=== PATIENT | male | born 1995 | race Hispanic/Latino ===

== ENCOUNTER 2018-05-02 18:25 | Emergency (ER) | payer SELFPAY ==
--- NOTE | 2018-05-02 20:09 | EDPHYS ---
Physician Documentation [facility] Name: Justus Crook Jr Age: 22 yrs Sex: Male : 1995 Arrival Date: 05/02/2018 Time: 18:26 Bed 9 Private MD: None, None ED Physician Luis Phillips HPI: 05/02 19:48 This 22 yrs old Male presents to ER via Ambulatory with complaints of Sore kb Throat. 19:48 The patient presents with sore throat. The patient describes throat pain as constant. kb Onset: The symptoms/episode began/occurred 5 day(s) ago. Severity of symptoms: At their worst the symptoms were moderate, in the emergency department the symptoms are unchanged. Modifying factors: The symptoms are alleviated by nothing, the symptoms are aggravated by swallowing, Patient's oral intake status: good. Associated signs and symptoms: Pertinent positives: cough, Sore throat Pertinent negatives chest pain, chills, diarrhea, dysphagia, earache, fever, flu-like symptoms, headache, nausea, rhinorrhea, shortness of breath, vomiting. The patient has not experienced similar symptoms in the past. The patient has not recently seen a physician. Historical: - Allergies: 18:41 No Known Allergies; aa5 - PMHx: 18:41 None; aa5 - PSHx: 18:41 None; aa5 - Immunization history:: Adult Immunizations up to date. - Social history:: Smoking status: Patient/guardian denies using tobacco. - Ebola Screening: : No symptoms or risks identified at this time. ROS: 19:47 Constitutional: Negative for fever, chills, and weight loss, Neck: Negative for injury, kb pain, and swelling, Cardiovascular: Negative for chest pain, palpitations, and edema, Abdomen/GI: Negative for abdominal pain, nausea, vomiting, diarrhea, and constipation, Back: Negative for injury and pain, MS/Extremity: Negative for injury and deformity, Skin: Negative for injury, rash, and discoloration, Neuro: Negative for headache, weakness, numbness, tingling, and seizure. 19:47 ENT: Positive for sinus congestion, sore throat. 19:47 Respiratory: Positive for cough, Negative for dyspnea on exertion, hemoptysis, orthopnea, pleurisy, shortness of breath, sputum production, wheezing. Exam: 19:47 Constitutional: This is a well developed, well nourished patient who is awake, alert, kb and in no acute distress. Head/Face: Normocephalic, atraumatic. ENT: Nares patent. No nasal discharge, no septal abnormalities noted. Tympanic membranes are normal and external auditory canals are clear. Oropharynx with no redness, swelling, or masses, exudates, or evidence of obstruction, uvula midline. Mucous membranes moist. Neck: Trachea midline, no thyromegaly or masses palpated, and no cervical lymphadenopathy. Supple, full range of motion without nuchal rigidity, or vertebral point tenderness. No Meningismus. Chest/axilla: Normal chest wall appearance and motion. Nontender with no deformity. No lesions are appreciated. Cardiovascular: Regular rate and rhythm with a normal S1 and S2. No gallops, murmurs, or rubs. Normal PMI, no JVD. No pulse deficits. Respiratory: Lungs have equal breath sounds bilaterally, clear to auscultation and percussion. No rales, rhonchi or wheezes noted. No increased work of breathing, no retractions or nasal flaring. Abdomen/GI: Soft, non-tender, with normal bowel sounds. No distension or tympany. No guarding or rebound. No evidence of tenderness throughout. Skin: Warm, dry with normal turgor. Normal color with no rashes, no lesions, and no evidence of cellulitis. MS/ Extremity: Pulses equal, no cyanosis. Neurovascular intact. Full, normal range of motion. Neuro: Awake and alert, GCS 15, oriented to person, place, time, and situation. Cranial nerves II-XII grossly intact. Motor strength 5/5 in all extremities. Sensory grossly intact. Cerebellar exam normal. Normal gait. Vital Signs: 18:41 BP 179 / 83; Pulse 108; Resp 18 S; Temp 98.0(TE); Pulse Ox 97% on R/A; Weight 129.27 kg aa5 (R); Height 6 ft. 0 in. (182.88 cm) (R); Pain 7/10; 20:21 BP 149 / 82; Pulse 111; Resp 16 S; Temp 97.4(O); Pulse Ox 97% on R/A; bb 18:41 Body Mass Index 38.65 (129.27 kg, 182.88 cm) aa5 MDM: 19:14 Patient medically screened. kb 19:47 Data reviewed: vital signs, nurses notes. Data interpreted: Pulse oximetry: on room air kb is 97 %. Interpretation: normal. Counseling: I had a detailed discussion with the patient and/or guardian regarding: the historical points, exam findings, and any diagnostic results supporting the discharge/admit diagnosis, lab results, the need for outpatient follow up, a family practitioner, to return to the emergency department if symptoms worsen or persist or if there are any questions or concerns that arise at home. 05/02 19:22 Order name: Flu; Complete Time: 20:08 kb 05/02 19:22 Order name: Strep; Complete Time: 20:08 kb 05/02 20:04 Order name: Throat Culture EDMS Administered Medications: No medications were administered Disposition: 05/02/18 20:08 Discharged to Home. Impression: Acute pharyngitis. - Condition is Stable. - Discharge Instructions: Pharyngitis, [id number], Viral Respiratory Infection, [id number]. - Medication Reconciliation Form, Thank You Letter, Antibiotic Education, Prescription Opioid Use, Work release form form. - Follow up: Emergency Department; When: As needed; Reason: Worsening of condition. Follow up: Private Physician; When: 2 - 3 days; Reason: Recheck today's complaints, Continuance of care, Re-evaluation by your physician. Addendum: 05/04/2018 07:36 Co-signature as Attending Physician, Luis Phillips MD. r n Signatures: Dispatcher [employer] EDCT Romina You, NILDA-C FISH HATCHERY MANAGER-Vanna De La Fuente RN RN bb Nieto, Roman, MD MD rn Calderon, Audri, RN RN aa5 Corrections: (The following items were deleted from the chart) 05/02 20:08 20:08 05/02/2018 20:08 Discharged to Home. Impression: Acute upper respiratory kb infection, unspecified. Condition is Stable. Forms are Medication Reconciliation Form, Thank You Letter, Antibiotic Education, Prescription Opioid Use. Follow up: Emergency Department; When: As needed; Reason: Worsening of condition. Follow up: Private Physician; When: 2 - 3 days; Reason: Recheck today's complaints, Continuance of care, Re-evaluation by your physician. kb 20:21 20:08 05/02/2018 20:08 Discharged to Home. Impression: Acute pharyngitis. Condition is bb Stable. Forms are Medication Reconciliation Form, Thank You Letter, Antibiotic Education, Prescription Opioid Use. Follow up: Emergency Department; When: As needed; Reason: Worsening of condition. Follow up: Private Physician; When: 2 - 3 days; Reason: Recheck today's complaints, Continuance of care, Re-evaluation by your physician. kb
--- NOTE | 2018-05-02 20:09 | ER ---
Nurse's Notes [facility] Name: Justus Crook Jr Age: 22 yrs Sex: Male : 1995 Arrival Date: 05/02/2018 Time: 18:26 Bed 9 Private MD: None, None Diagnosis: Acute pharyngitis Presentation: 05/02 18:40 Presenting complaint: Patient states: sore throat that began . Pt also reports aa5 cough. Transition of care: patient was not received from another setting of care. Onset of symptoms was April 2018. Risk Assessment: Do you want to hurt yourself or someone else? Patient reports no desire to harm self or others. Initial Sepsis Screen: Does the patient meet any 2 criteria? No. Patient's initial sepsis screen is negative. Does the patient have a suspected source of infection? No. Patient's initial sepsis screen is negative. Care prior to arrival: None. 18:40 Method Of Arrival: Ambulatory aa5 18:40 Acuity: EUNICE 4 aa5 Historical: - Allergies: 18:41 No Known Allergies; aa5 - PMHx: 18:41 None; aa5 - PSHx: 18:41 None; aa5 - Immunization history:: Adult Immunizations up to date. - Social history:: Smoking status: Patient/guardian denies using tobacco. - Ebola Screening: : No symptoms or risks identified at this time. Screenin:31 Abuse screen: Denies threats or abuse. Nutritional screening: No deficits noted. bb Tuberculosis screening: No symptoms or risk factors identified. Fall Risk None identified. Assessment: 19:31 General: Appears in no apparent distress. Behavior is calm, cooperative. General: bb Reports sore throat since . Pain: Complains of pain in throat. Neuro: Level of Consciousness is awake, alert, obeys commands, Oriented to person, place, time, situation. Cardiovascular: No deficits noted. Respiratory: Airway is patent Respiratory effort is even, unlabored, Breath sounds are clear bilaterally. GI: No deficits noted. No signs and/or symptoms were reported involving the gastrointestinal system. EENT: Throat is reddened. Derm: Skin is dry, Skin is normal, Skin temperature is warm. Musculoskeletal: Circulation, motion, and sensation intact. 20:20 Reassessment: Patient and/or family updated on plan of care and expected duration. Pain bb level reassessed. Patient is alert, oriented x 3, equal unlabored respirations, skin warm/dry/pink. pt verbalized understanding of and agrees to plan of care discharge instructions given pt ambulated with steady gait to exit accompanied by family. Vital Signs: 18:41 BP 179 / 83; Pulse 108; Resp 18 S; Temp 98.0(TE); Pulse Ox 97% on R/A; Weight 129.27 kg aa5 (R); Height 6 ft. 0 in. (182.88 cm) (R); Pain 7/10; 20:21 BP 149 / 82; Pulse 111; Resp 16 S; Temp 97.4(O); Pulse Ox 97% on R/A; bb 18:41 Body Mass Index 38.65 (129.27 kg, 182.88 cm) aa5 ED Course: 18:26 Patient arrived in ED. sb2 18:26 None, None is Private Physician. sb2 18:36 Romina You FNP-C is [facility]. kb 18:36 Luis Phillips MD is Attending Physician. kb 18:40 Arm band placed on. aa5 18:41 Triage completed. aa5 19:31 Patient has correct armband on for positive identification. Bed in low position. Call bb light in reach. Side rails up X 1. Adult w/ patient. 19:53 Vanna Olmos, RN is Primary Nurse. bb 20:21 No provider procedures requiring assistance completed. Patient did not have IV access bb during this emergency room visit. Administered Medications: No medications were administered Outcome: 20:08 Discharge ordered by MD. kb 20:21 Discharged to home ambulatory, with family. bb 20:21 Condition: stable 20:21 Discharge instructions given to patient, Instructed on discharge instructions, follow up and referral plans. Demonstrated understanding of instructions, follow-up care. 20:21 Patient left the ED. bb Signatures: Romina You FNP-C FNP-Vanna De La Fuente, RN RN bb Brenda Nicole, RN RN aa5 Otilia Hernandez sb2
== END 2018-05-02 20:21 | disposition home or self-care (01) ==
LOC: ER 18:25
DX: J02.9 Acute pharyngitis, unspecified (principal)
CPT/HCPCS: 87070; 87081; 87804; 99281

== ENCOUNTER 2019-04-21 13:58 | Emergency (ER) | payer SELFPAY ==
--- NOTE | 2019-04-21 15:09 | ER ---
Nurse's Notes [facility] Name: Justus Crook Jr Age: 23 yrs Sex: Male : 1995 Arrival Date: 04/21/2019 Time: 13:59 Bed 23 Private MD: Diagnosis: Myalgia;Cough Presentation: 04/21 14:11 Presenting complaint: Productive cough with yellow sputum, SOB, headache, nausea, body hb aches, and sore throat x 2-3 days. Denies fever. Transition of care: patient was not received from another setting of care. Onset of symptoms was April 19, 2019. Risk Assessment: Do you want to hurt yourself or someone else? Patient reports no desire to harm self or others. Care prior to arrival: None. 14:11 Method Of Arrival: Ambulatory hb 14:11 Acuity: EUNICE 4 hb Historical: - Allergies: 14:14 No Known Allergies; hb - Home Meds: 14:14 None [Active]; hb - PMHx: 14:14 None; hb - PSHx: 14:14 None; hb - Immunization history:: Adult Immunizations up to date. - Social history:: Smoking status: Patient/guardian denies using tobacco. - Ebola Screening: : No symptoms or risks identified at this time. Screenin:29 Abuse screen: Denies threats or abuse. Nutritional screening: No deficits noted. sr5 Tuberculosis screening: No symptoms or risk factors identified. Fall Risk None identified. Assessment: 14:29 Reassessment: Pt sitting upright, no apparent distress noted, fully AA\T\Ox4, equal sr5 unlabored resp, +nonproductive cough noted, skin warm/dry/nc, requesting food and drink, provided with water for now. Flu/strep obtained. 15:30 Reassessment: Upon discharge pt remains AA\T\Ox4, equal unlabored resp, skin warm/dry/nc, sr5 steady gait out of ER with family. Vital Signs: 14:14 BP 149 / 93; Pulse 104; Resp 16; Temp 97.6; Pulse Ox 97% ; Weight 136.08 kg; Height 5 hb ft. 10 in. (177.80 cm); Pain 5/10; 14:59 BP 130 / 91; Pulse 89; Resp 18; Temp 98.1; Pulse Ox 99% on R/A; sr5 14:14 Body Mass Index 43.05 (136.08 kg, 177.80 cm) ED Course: 13:59 Patient arrived in ED. as 14:06 Abel[facility] Falcon [facility]-C [facility] la1 14:06 Alvaro Ya MD is Attending Physician. la1 14:13 Triage completed. hb 14:14 Arm band placed on. hb 14:15 Bj Winston, RN is Primary Nurse. sr5 14:29 Patient has correct armband on for positive identification. Bed in low position. Call sr5 light in reach. Side rails up X 1. 14:29 Flu and/or RSV swab sent to lab. Strep swab sent to lab. sr5 15:30 No provider procedures requiring assistance completed. Patient did not have IV access sr5 during this emergency room visit. Administered Medications: No medications were administered Outcome: 15:08 Discharge ordered by . la1 15:30 Discharged to home ambulatory, with family. sr5 15:30 Condition: good 15:30 Discharge instructions given to patient, Instructed on discharge instructions, follow up and referral plans. medication usage, Demonstrated understanding of instructions, follow-up care, medications, Prescriptions given X 1. 15:35 Patient left the ED. sr5 Signatures: Yolanda Castro as Abelino Falcon FNP-C FNP-Cla1 Charisma Calvo, RN RN Bj Winston, RN RN sr5
--- NOTE | 2019-04-21 15:09 | EDPHYS ---
Physician Documentation [facility] Name: Justus Crook Jr Age: 23 yrs Sex: Male : 1995 Arrival Date: 04/21/2019 Time: 13:59 Bed 23 Private MD: ED Physician Alvaro Ya HPI: 04/21 14:30 This 23 yrs old Male presents to ER via Ambulatory with complaints of Flu la1 Symptoms. 14:30 Onset: The symptoms/episode began/occurred last night. Associated signs and symptoms: la1 Pertinent positives: cough, fever, headache, nasal discharge, sore throat. Modifying factors: The patient symptoms are alleviated by nothing, the patient symptoms are aggravated by nothing. The patient has not experienced similar symptoms in the past. Child ill with similar sx. Historical: - Allergies: 14:14 No Known Allergies; hb - Home Meds: 14:14 None [Active]; hb - PMHx: 14:14 None; hb - PSHx: 14:14 None; hb - Immunization history:: Adult Immunizations up to date. - Social history:: Smoking status: Patient/guardian denies using tobacco. - Ebola Screening: : No symptoms or risks identified at this time. ROS: 14:30 Eyes: Negative for injury, pain, redness, and discharge. la1 14:30 Neck: Negative for injury, pain, and swelling, Cardiovascular: Negative for chest pain, palpitations, and edema, Abdomen/GI: Negative for abdominal pain, nausea, vomiting, diarrhea, and constipation, Back: Negative for injury and pain, MS/Extremity: Negative for injury and deformity, Neuro: Negative for headache, weakness, numbness, tingling, and seizure. 14:30 Constitutional: Positive for body aches, chills, fatigue, malaise, poor PO intake. 14:30 ENT: Positive for sore throat. 14:30 Respiratory: Positive for cough. Exam: 14:31 Constitutional: This is a well developed, well nourished patient who is awake, alert, la1 and in no acute distress. Head/Face: Normocephalic, atraumatic. Eyes: Pupils equal round and reactive to light, extra-ocular motions intact. Lids and lashes normal. Conjunctiva and sclera are non-icteric and not injected. Cornea within normal limits. Periorbital areas with no swelling, redness, or edema. ENT: Nares patent. No nasal discharge, no septal abnormalities noted. Tympanic membranes are normal and external auditory canals are clear. Oropharynx with no redness, swelling, or masses, exudates, or evidence of obstruction, uvula midline. Mucous membranes moist. Neck: Trachea midline, no thyromegaly or masses palpated, and no cervical lymphadenopathy. Supple, full range of motion without nuchal rigidity, or vertebral point tenderness. No Meningismus. Chest/axilla: Normal chest wall appearance and motion. Nontender with no deformity. No lesions are appreciated. Cardiovascular: Regular rate and rhythm with a normal S1 and S2. No gallops, murmurs, or rubs. Normal PMI, no JVD. No pulse deficits. Respiratory: Lungs have equal breath sounds bilaterally, clear to auscultation No rales, rhonchi or wheezes noted. No increased work of breathing, no retractions or nasal flaring. Abdomen/GI: Soft, non-tender, with normal bowel sounds. No distension or tympany. No guarding or rebound. No evidence of tenderness throughout. Back: No spinal tenderness. No costovertebral tenderness. Full range of motion. MS/ Extremity: Pulses equal, no cyanosis. Neurovascular intact. Full, normal range of motion. Vital Signs: 14:14 BP 149 / 93; Pulse 104; Resp 16; Temp 97.6; Pulse Ox 97% ; Weight 136.08 kg; Height 5 hb ft. 10 in. (177.80 cm); Pain 5/10; 14:59 BP 130 / 91; Pulse 89; Resp 18; Temp 98.1; Pulse Ox 99% on R/A; sr5 14:14 Body Mass Index 43.05 (136.08 kg, 177.80 cm) hb MDM: 14:14 Patient medically screened. la1 15:06 Data reviewed: vital signs, nurses notes, lab test result(s), I have discussed the la1 patient's presentation/case with the attending Emergency Department Physician; and as a result, I will discharge patient. Data interpreted: Pulse oximetry: on room air is 100 %. Interpretation: normal. Counseling: I had a detailed discussion with the patient and/or guardian regarding: the historical points, exam findings, and any diagnostic results supporting the discharge/admit diagnosis, lab results, the need for outpatient follow up, a family practitioner, to return to the emergency department if symptoms worsen or persist or if there are any questions or concerns that arise at home. ED course: Pt flu test negative but symptoms started last night and clinically looks like influenza, offered tx with tamiflu after explaining SE and pt would like an RX.. 04/21 14:20 Order name: Strep la1 04/21 14:20 Order name: Flu la1 04/21 14:46 Order name: Throat Culture EDMS Administered Medications: No medications were administered Disposition: 16:03 Co-signature as Attending Physician, Alvaro Ya MD I agree with the assessment and kdr plan of care. Disposition: 04/21/19 15:08 Discharged to Home. Impression: Myalgia, Cough. - Condition is Stable. - Discharge Instructions: Influenza, Adult, Muscle Pain, Adult, Cough, Adult. - Prescriptions for Tamiflu 75 mg Oral Capsule - take 1 tablet by ORAL route every 12 hours for 5 days; 10 tablet. - Medication Reconciliation Form, Thank You Letter, Family Work Release form. - Follow up: Private Physician; When: 2 - 3 days; Reason: Recheck today's complaints, Re-evaluation by your physician. Follow up: Emergency Department; When: As needed. - Problem is new. - Symptoms have improved. Signatures: Dispatcher [employer] EDLA Alvaro Ya MD MD [facility] Abelino Falcon, SOFTWARE TOOLS ENGINEER-C SOFTWARE TOOLS ENGINEER-Cla1 Charisma Calvo RN RN Bj Winston RN RN sr5 Corrections: (The following items were deleted from the chart) 15:35 15:08 04/21/2019 15:08 Discharged to Home. Impression: Myalgia; Cough. Condition is sr5 Stable. Forms are Family Work Release, Medication Reconciliation Form, Thank You Letter, Antibiotic Education, Prescription Opioid Use. Follow up: Private Physician; When: 2 - 3 days; Reason: Recheck today's complaints, Re-evaluation by your physician. Follow up: Emergency Department; When: As needed. Problem is new. Symptoms have improved. la1
[2019-04-21 15:43] VITALS: BP 130/91; TEMP 98.1; O2SAT 99
== END 2019-04-21 15:35 | disposition home or self-care (01) ==
LOC: ER 13:58
DX: R05 Cough (principal); M79.10 Myalgia, unspecified site
CPT/HCPCS: 87070; 87081; 87804; 99283